=== PATIENT | female | born 2000 | race Caucasian/White ===

== ENCOUNTER 2019-12-21 13:20 | Outpatient (CLI) | payer OTHER | END 2019-12-21 13:25 | disposition home or self-care (01) | LOC: SONOGRAMA 13:20 | DX: E04.1 Nontoxic single thyroid nodule (principal) ==

== ENCOUNTER → 2021-01-23 | Outpatient (CLI) | payer OTHER | END | disposition home or self-care (01) | LOC: MAMO-SONO 01-07 13:30 → SONOGRAMA 13:30 → MAMO-SONO 13:45 | PROVIDERS: ATTEND Student in an Organized Health Care Education/Training Program | DX: N63.10 Unspecified lump in the right breast, unspecified quadrant (principal); N63.20 Unspecified lump in the left breast, unspecified quadrant ==

== ENCOUNTER 2021-09-07 13:25 | Outpatient (CLI) | payer OTHER | END 2021-09-07 13:40 | disposition home or self-care (01) | LOC: SONOGRAMA 13:25 | PROVIDERS: ATTEND Obstetrics & Gynecology | DX: N83.291 Other ovarian cyst, right side (principal); M93.88 Other specified osteochondropathies other ==

== ENCOUNTER 2022-01-25 10:48 | Outpatient (CLI) | payer OTHER | END 2022-01-25 11:03 | disposition home or self-care (01) | LOC: SONOGRAMA 10:48 | PROVIDERS: ATTEND Obstetrics & Gynecology | DX: N92.6 Irregular menstruation, unspecified (principal); Q50.1 Developmental ovarian cyst ==